=== PATIENT | female | born 1935 | race Caucasian/White ===

== ENCOUNTER → 2019-10-31 12:28 | Outpatient (CLI) | payer MEDICARE, OTHER, SELFPAY ==
--- NOTE | 2019-10-31 12:30 | DI.MRI.S_ITS ---
PROCEDURE: MR CERVICAL SPINE WO CON INDICATIONS: Neck pain TECHNIQUE: Noncontrast sagittal T1 spin echo and T2 fast spin echo, sagittal STIR, foraminal oblique sagittal T2 fast spin echo, and axial gradient echo or T2 fast spin echo through the cervical spine. COMPARISON: None. FINDINGS: Image quality: Excellent. Alignment and Curvature: Straightening of the usual cervical lordosis. 2 mm anterolisthesis of C5 on C6. Otherwise normal alignment. Vertebral body heights maintained. Bone Marrow: Discogenic nonedematous marrow signal change from C3-C4 through C6-C7 along the endplates. There is also a few small areas of bone marrow edema along the endplates in association with small Schmorl nodes at the C6 and C7 endplates. Spinal Cord: Normal morphology and signal intensity of the cervical cord. There is no syrinx. Paraspinous Soft Tissues: No prevertebral or paraspinous soft tissue abnormality. C2-C3: No spinal canal or neural foraminal stenosis. C3-C4: No spinal canal stenosis. Facet and uncovertebral hypertrophy contribute to moderate right and mild left neural foraminal stenosis. C4-C5: Posterior disc osteophyte complex flattens the ventral thecal sac without mass effect upon the cord. Facet and uncovertebral hypertrophy contribute to moderate bilateral neural foraminal stenosis. C5-C6: Posterior disc osteophyte complex flattens the ventral thecal sac. No mass effect upon the cord. Facet and uncovertebral hypertrophy contribute to moderate right and mild left neural foraminal stenosis. C6-C7: Posterior disc osteophyte complex without mass effect upon the cord. Facet and uncovertebral hypertrophy contribute to severe left and mild right neural foraminal stenosis. C7-T1: No spinal canal or neural foraminal stenosis. IMPRESSION: Multilevel multifactorial degenerative changes. No spinal canal stenosis. Varying degrees of neural foraminal stenosis, severe on the left at C6-C7. Dictated by: Dickson Rocha M.D. on 11/01/2019 at 8:55 Approved by: Dickson Rocha M.D. on 11/01/2019 at 8:58
== END ==
PROVIDERS: Family Provider Family Medicine; PCP Family Medicine; Referring Provider Physical Medicine & Rehabilitation; Visit Provider Physical Medicine & Rehabilitation
DX: M54.2 Cervicalgia (principal); M48.02 Spinal stenosis, cervical region; M47.22 Other spondylosis with radiculopathy, cervical region
CPT/HCPCS: 72141

== ENCOUNTER → 2022-07-04 13:55 | Outpatient (CLI) | payer MEDICARE, OTHER, SELFPAY | PROVIDERS: Family Provider Family Medicine; PCP Family Medicine; Visit Provider Urology | DX: N39.0 Urinary tract infection, site not specified (principal); R31.21 Asymptomatic microscopic hematuria; Z87.891 Personal history of nicotine dependence; Z87.440 Personal history of urinary (tract) infections | CPT/HCPCS: 81002; 87086; 99214 ==

== ENCOUNTER → 2022-07-13 10:39 | Outpatient (CLI) | payer MEDICARE, OTHER, SELFPAY | PROVIDERS: Family Provider Family Medicine; PCP Family Medicine; Visit Provider Urology | DX: R31.21 Asymptomatic microscopic hematuria (principal); Z87.440 Personal history of urinary (tract) infections; Z87.891 Personal history of nicotine dependence | CPT/HCPCS: 52000; 81002; 87086 ==